=== PATIENT | female | born 1990 | race American Indian/Alaskan Native ===

== ENCOUNTER 2018-10-09 15:25 | Emergency (ER) | payer SELFPAY ==
--- NOTE | 2018-10-09 16:35 | Event Note ---
ED Screening Note Date of service: 10/09/18 Time: 16:34 ED Screening Note: 28 y o female at 8 weeks gestation presents with vaginal bleed This initial assessment/diagnostic orders/clinical plan/treatment(s) is/are subject to change based on patients health status, clinical progression and re- assessment by fellow clinical providers in the ED. Further treatment and workup at subsequent clinical providers discretion. Patient/guardian urged not to elope from the ED as their condition may be serious if not clinically assessed and managed. Initial orders include: ua,preg quant and cbc
[2018-10-09 17:28] LABS: Basophils % (Auto) 0.3 % (0.0-1.8); Eosinophils # (Auto) 0.1 K/mm3 (0.0-0.4); Hematocrit 33.5 % (30.3-42.9); Hemoglobin 11.2 gm/dl (10.1-14.3); Lymphocytes # (Auto) 3.2 K/mm3 (1.2-5.4); Lymphocytes % (Auto) 32.1 % (13.4-35.0); Mean Corpuscular HGB Conc 33 % (30-34); Monocytes # (Auto) 0.8 K/mm3 (0.0-0.8); Monocytes % (Auto) 7.8 % (0.0-7.3); Platelet Count 345 K/mm3 (140-440)
[2018-10-09 17:30] LABS: Bilirubin,Urine NEG (Negative); Blood,Urine LG (Negative); Color,Urine Yellow (Yellow); Mucus,Urine FEW /HPF; Protein,Urine <15 mg/dL mg/dL (Negative); Urobilinogen,Urine < 2.0 mg/dL (<2.0)
[2018-10-09 17:32] LABS: Mean Corpuscular Volume 62 fl (79-97); Red Cell Distribution Width 21.9 % (13.2-15.2)
[2018-10-09 17:53] LABS: BUN/Creatinine Ratio 10; Blood Urea Nitrogen 7 mg/dL (7-17); Calcium 9.6 mg/dL (8.4-10.2); Hemolysis Index 0
--- NOTE | 2018-10-09 19:39 | Emergency Department Report ---
ED HPI - General Chief complaint: Vaginal Bleeding Stated complaint: 8WKS PREG/BLEEDING Time Seen by Provider: 10/09/18 16:34 Source: patient Mode of arrival: Ambulatory Limitations: No Limitations - History of Present Illness Initial comments: This is a 28-year-old female nontoxic, well nourished in appearance, no acute signs of distress presents to the ED with c/o of vaginal bleeding and pelvic pain x1 day. Patient denies any abdominal pain. Patient denies any vaginal discharge or foul odor. Patient denies any nausea, vomiting, chest pain, shortness of breathe, fever, chills, headache, stiff neck, numbness, tingling. Patient denies any urinary symptoms. Patient denies any allergies or PMH. MD Complaint: vaginal bleeding, other (pelvic pain) -: days(s) Location: pelvis Radiation: none Severity: mild Severity scale (0 -10): 3 Quality: cramping, aching Consistency: constant Improves with: none Worsens with: none Associated symptoms: vaginal bleeding. denies: nausea/vomiting, vaginal discharge, abdominal pain, dysuria, headache, vision changes, malaise, dysparuenia, rash, seizure, shortness of breath, syncope, weakness Vaginal bleeding: light :: Yes Number of weeks : 8 Pre-harinder care: none - Related Data Previous Rx's Medication Instructions Recorded Last Taken Type Nitrofurantoin [place]/M-Cryst 100 mg PO Q12HR #14 capsule 10/09/18 Unknown Rx [Macrobid CAP] 21/Iron Fu/Folic Acid 1 each PO DAILY #30 tablet 10/09/18 Unknown Rx [ Complete Caplet] Allergies Allergy/AdvReac Type Severity Reaction Status Date / Time No Known Allergies Allergy Verified 10/09/18 15:27 ED Review of Systems ROS: Stated complaint: 8WKS PREG/BLEEDING Other details as noted in HPI Constitutional: denies: chills, fever Eyes: denies: eye pain, eye discharge, vision change ENT: denies: ear pain, throat pain Respiratory: denies: cough, shortness of breath, wheezing Cardiovascular: denies: chest pain, palpitations Endocrine: no symptoms reported Gastrointestinal: denies: abdominal pain, nausea, diarrhea Genitourinary: abnormal menses. denies: urgency, dysuria, discharge Musculoskeletal: denies: back pain, joint swelling, arthralgia Skin: denies: rash, lesions Neurological: denies: headache, weakness, paresthesias Psychiatric: denies: anxiety, depression Hematological/Lymphatic: denies: easy bleeding, easy bruising ED Past Medical Hx - Past Medical History Previous Medical History?: No - Surgical History Past Surgical History?: Yes Additional Surgical History: c section x2 - Medications Home Medications: Home Medications Medication Instructions Recorded Confirmed Last Taken Type Nitrofurantoin [place]/M-Cryst 100 mg PO Q12HR #14 capsule 10/09/18 Unknown Rx [Macrobid CAP] 21/Iron Fu/Folic Acid 1 each PO DAILY #30 tablet 10/09/18 Unknown Rx [ Complete Caplet] ED Physical Exam - General Limitations: No Limitations General appearance: alert, in no apparent distress - Head Head exam: Present: atraumatic, normocephalic - Neck Neck exam: Present: normal inspection, full ROM. Absent: tenderness, meningismus, lymphadenopathy - GI/Abdominal GI/Abdominal exam: Present: soft, normal bowel sounds. Absent: distended, tenderness, guarding, rebound, rigid, diminished bowel sounds - Extremities Exam Extremities exam: Present: normal inspection, full ROM - Back Exam Back exam: Present: normal inspection, full ROM - Neurological Exam Neurological exam: Present: alert, oriented X3, normal gait - Psychiatric Psychiatric exam: Present: normal affect, normal mood - Skin Skin exam: Present: warm, dry, intact, normal color. Absent: rash ED Course - Reevaluation(s) Reevaluation #1: 10/09/18 19:30 Patient is speaking in full sentences with no signs of distress noted. ED Medical Decision Making - Lab Data Result diagrams: 10/09/18 16:51 10/09/18 16:51 - Medical Decision Making This is a 28-year-old female presents with threatened miscarriage and UTI. Patient is stable and was examined by me. Normal abdominal exam. US OB obtained and dictated by the radiologist. Ua obtained. Quantative serum test obtained. Patient notified of the US report with no questions noted by the patient. Patient was instructed f/u with NATIONAL FACILITIES MANAGER in 3-5 days to follow up with a NATIONAL FACILITIES MANAGER or to emergency room for a reevaluation of serum quantative test with possible ultrasound. RH factor positive. Labs within normal limits. At time of discharge, the patient does not seem toxic or ill in appearance. No acute signs of distress noted. Patient agrees to discharge treatment plan of care. No further questions noted by the patient. Critical care attestation.: If time is entered above; I have spent that time in minutes in the direct care of this critically ill patient, excluding procedure time. ED Disposition Clinical Impression: Threatened miscarriage UTI (urinary tract infection) Qualifiers: Urinary tract infection type: site unspecified Hematuria presence: without hematuria Qualified Code(s): N39.0 - Urinary tract infection, site not specified Disposition: DC- TO HOME OR SELFCARE Is pt being admited?: No Does the pt Need Aspirin: No Condition: Stable Instructions: Urinary Tract Infection in Women (ED), Threatened Miscarriage (ED) Additional Instructions: Follow-up with a NATIONAL FACILITIES MANAGER doctor in 3-5 days or if symptoms worsen and continue return to emergency room as soon as possible. Prescriptions: Nitrofurantoin [place]/M-Cryst [Macrobid CAP] 100 mg PO Q12HR #14 capsule 21/Iron Fu/Folic Acid [ Complete Caplet] 1 each PO DAILY #30 tablet Referrals: PRIMARY CAREMD [Primary Care Provider] - 3-5 Days HONG TORRES MD [Staff Physician] - 3-5 Days [facility] [Provider [facility]] - 3-5 Days Forms: Work/School Release Form(ED)
--- NOTE | 2018-10-09 20:53 | Ultrasound Report ---
OB ultrasound FINDINGS: Viable intrauterine is seen with crown-rump length and sac measurements correspon ding to an MA of 6 weeks 1 day for an KERWIN of 06/03/2019. heart rate is 119 bpm. No hemorrhage is seen. Both ovaries appear normal. The uterus is enlarged measuring 14 x 7.6 x 8 cm and is heterogene ous especially in the fundus apparently due to fibroids. Signer Name: Chilango Pena MD Signed: 10/09/2018 8:49 PM Workstation Name: [id number]
[2018-10-09 21:09] VITALS: BP 129/81
== END 2018-10-09 21:12 | disposition home or self-care (01) ==
LOC: ED 15:25
DX: O20.0 Threatened abortion (principal); O23.41 Unspecified infection of urinary tract in pregnancy, first trimester; Z3A.01 Less than 8 weeks gestation of pregnancy
CPT/HCPCS: 36415; 76801; 76817; 80048; 81001; 84702; 85025; 86900; 86901; 87086

== ENCOUNTER 2018-10-11 15:44 | Emergency (ER) | payer SELFPAY ==
--- NOTE | 2018-10-11 16:27 | Event Note ---
ED Screening Note ED Screening Note: 08/21 M4 VAG BLEED IN PREG NO CARE NO RX NO PMH NO CIG/ETOH/DRUGS PSH 2 CSEC This initial assessment/diagnostic orders/clinical plan/treatment(s) is/are subject to change based on patients health status, clinical progression and re- assessment by fellow clinical providers in the ED. Further treatment and workup at subsequent clinical providers discretion. Patient/guardian urged not to elope from the ED as their condition may be serious if not clinically assessed and managed. Initial orders include: URINE/BLOOD/US
[2018-10-11 17:11] LABS: Bilirubin,Urine NEG (Negative); Blood,Urine LG (Negative); Color,Urine Red (Yellow); Mucus,Urine FEW /HPF; Sperm,Urine 1+ /HPF (NP); Urobilinogen,Urine < 2.0 mg/dL (<2.0)
[2018-10-11 17:15] LABS: RBC,Urine > 182.0 /HPF (0.0-6.0); WBC,Urine > 182.0 /HPF (0.0-6.0)
[2018-10-11 17:40] LABS: Basophils # (Auto) 0.1 K/mm3 (0.0-0.1); Basophils % (Auto) 0.9 % (0.0-1.8); Eosinophils # (Auto) 0.1 K/mm3 (0.0-0.4); Eosinophils % (Auto) 0.6 % (0.0-4.3); Hematocrit 32.6 % (30.3-42.9); Hemoglobin 10.8 gm/dl (10.1-14.3); Lymphocytes # (Auto) 3.4 K/mm3 (1.2-5.4); Lymphocytes % (Auto) 29.6 % (13.4-35.0); Mean Corpuscular HGB Conc 33 % (30-34); Monocytes # (Auto) 0.8 K/mm3 (0.0-0.8); Monocytes % (Auto) 6.8 % (0.0-7.3); Platelet Count 315 K/mm3 (140-440); Red Blood Count 5.29 M/mm3 (3.65-5.03)
[2018-10-11 18:00] LABS: Mean Corpuscular Volume 62 fl (79-97)
[2018-10-11 18:01] LABS: BUN/Creatinine Ratio 12; Blood Urea Nitrogen 7 mg/dL (7-17); Calcium 8.9 mg/dL (8.4-10.2); Hemolysis Index 143; Red Cell Distribution Width 21.7 % (13.2-15.2)
--- NOTE | 2018-10-11 18:03 | Ultrasound Report ---
ULTRASOUND OBSTETRIC INDICATION / CLINICAL INFORMATION: Vaginal bleeding. TECHNIQUE: Transabdominal and Transvaginal. COMPARISON: None available. FINDINGS: No visualized IUP. Uterus is enlarged measuring 14.8 x 7.0 x 7.3 cm containing several uterine fibroids measuring up to 2.9 cm. Endometrial stripe thickened and irregular measuring 1.2 cm ADNEXA: No significant abnormality. FREE FLUID: None. ADDITIONAL FINDINGS: None. IMPRESSION: 1. Thickened endometrial stripe may be secondary to recent miscarriage. Please confirm with follow-up ultrasound and beta hCG. 2. No visualized IUP 3. Enlarged leiomyomatous uterus Signer Name: Cristhian Hale MD Signed: 10/11/2018 5:59 PM Workstation Name: [id number]
--- NOTE | 2018-10-11 19:19 | Emergency Department Report ---
ED Female HPI - General Chief complaint: Vaginal Bleeding Stated complaint: 7WKS /LOWER ABD PAIN Time Seen by Provider: 10/11/18 16:26 Source: patient Mode of arrival: Ambulatory Limitations: No Limitations - History of Present Illness Initial comments: 28-year-old -[place] female who was recently seen here on 10/09/2018 for abdominal pain comes back and forth, pains and vaginal bleeding. Patient stated that it started today about 1 PM. Patient reports that she depressed for several weeks . Patient reports that she is 6 para 2 with 4 miscarriages. Last Mr. 08/21/2018. She has gone through one pad today. She reports her pain for 10 out of 10. Has not taken anything for pain. She was diagnosed on 10/09/2018 with a UTI but has not started her medications. Patient currently is in no OB care at this time. MD Complaint: vaginal bleeding, pelvic pain -: This morning Location: suprapubic Severity: severe Severity scale (0 -10): 10 Quality: cramping Consistency: constant Improves with: none Worsens with: none Are you Now?: Yes (7 weeks) Last Menstrual Period: 08/21/18 EDC: 05/28/19 Associated Symptoms: vaginal bleeding, abdominal pain - Related Data Sexually active: Yes : 6 Para: 2 A: 4 Previous Rx's Medication Instructions Recorded Last Taken Type Nitrofurantoin [place]/M-Cryst 100 mg PO Q12HR #14 capsule 10/09/18 Unknown Rx [Macrobid CAP] 21/Iron Fu/Folic Acid 1 each PO DAILY #30 tablet 10/09/18 Unknown Rx [ Complete Caplet] Allergies Allergy/AdvReac Type Severity Reaction Status Date / Time No Known Allergies Allergy Verified 10/11/18 15:48 ED Review of Systems ROS: Stated complaint: 7WKS /LOWER ABD PAIN Other details as noted in HPI Comment: All other systems reviewed and negative Gastrointestinal: abdominal pain Genitourinary: other (vaginal bleeding) ED Past Medical Hx - Past Medical History Previous Medical History?: No - Surgical History Additional Surgical History: c section x2 - Medications Home Medications: Home Medications Medication Instructions Recorded Confirmed Last Taken Type Nitrofurantoin [place]/M-Cryst 100 mg PO Q12HR #14 capsule 10/09/18 Unknown Rx [Macrobid CAP] 21/Iron Fu/Folic Acid 1 each PO DAILY #30 tablet 10/09/18 Unknown Rx [ Complete Caplet] ED Physical Exam - General Limitations: No Limitations General appearance: alert, in no apparent distress - Head Head exam: Present: atraumatic, normocephalic - Eye Eye exam: Present: normal appearance - ENT ENT exam: Present: mucous membranes moist - Neck Neck exam: Present: normal inspection - Respiratory Respiratory exam: Present: normal lung sounds bilaterally. Absent: respiratory distress - Cardiovascular Cardiovascular Exam: Present: regular rate, normal rhythm. Absent: systolic murmur, diastolic murmur, rubs, gallop - GI/Abdominal GI/Abdominal exam: Present: soft, normal bowel sounds - External exam: Present: normal external exam Speculum exam: Present: vaginal bleeding Bi-manual exam: Present: normal bi-manual exam - Extremities Exam Extremities exam: Present: normal inspection - Back Exam Back exam: Present: normal inspection - Neurological Exam Neurological exam: Present: alert, oriented X3 - Psychiatric Psychiatric exam: Present: normal affect, normal mood - Skin Skin exam: Present: warm, dry, intact, normal color. Absent: rash ED Medical Decision Making - Lab Data Result diagrams: 10/11/18 17:26 10/11/18 17:26 Lab Results 10/11/18 10/11/18 10/11/18 Range/Units 16:44 17:26 17:26 WBC 11.6 H (4.5-11.0) K/mm3 RBC 5.29 H (3.65-5.03) M/mm3 Hgb 10.8 (10.1-14.3) gm/dl Hct 32.6 (30.3-42.9) % MCV 62 L (79-97) fl MCH 20 L (28-32) pg MCHC 33 (30-34) % RDW 21.7 H (13.2-15.2) % Plt Count 315 (140-440) K/mm3 Lymph % (Auto) 29.6 (13.4-35.0) % [place] % (Auto) 6.8 (0.0-7.3) % Eos % (Auto) 0.6 (0.0-4.3) % Baso % (Auto) 0.9 (0.0-1.8) % Lymph # 3.4 (1.2-5.4) K/mm3 [place] # 0.8 (0.0-0.8) K/mm3 Eos # 0.1 (0.0-0.4) K/mm3 Baso # 0.1 (0.0-0.1) K/mm3 Seg Neutrophils % 62.1 (40.0-70.0) % Seg Neutrophils # 7.2 (1.8-7.7) K/mm3 Sodium 136 L (137-145) mmol/L Potassium 4.2 (3.6-5.0) mmol/L Chloride 102.5 (98-107) mmol/L Carbon Dioxide 21 L (22-30) mmol/L Anion Gap 17 mmol/L BUN 7 (7-17) mg/dL Creatinine 0.6 L (0.7-1.2) mg/dL Estimated GFR > 60 ml/min BUN/Creatinine Ratio 12 % Glucose 90 (65-100) mg/dL Calcium 8.9 (8.4-10.2) mg/dL HCG, Quant (0-4) mIU/mL Urine Color Red (Yellow) Urine Turbidity Cloudy (Clear) Urine pH 6.0 (5.0-7.0) Ur Specific [place] 1.026 (1.003-1.030) Urine Protein 100 mg/dl (Negative) mg/dL Urine Glucose (UA) Neg (Negative) mg/dL Urine Ketones Neg (Negative) mg/dL Urine Blood Lg (Negative) Urine Nitrite Neg (Negative) Urine Bilirubin Neg (Negative) Urine Urobilinogen < 2.0 (<2.0) mg/dL Ur Leukocyte Esterase Sm (Negative) Urine WBC (Auto) > 182.0 H (0.0-6.0) /HPF Urine RBC (Auto) > 182.0 (0.0-6.0) /HPF U Epithel Cells (Auto) 5.0 (0-13.0) /HPF Urine WBC Clumps 3+ /HPF Urine Mucus Few /HPF Urine Yeast (Budding) 3+ /HPF Urine Sperm 1+ (FINANCIAL ACCOUNTANT) /HPF Blood Type Ord Rhogam Gestat Weeks WEEKS 10/11/18 10/11/18 Range/Units 17:26 17:26 WBC (4.5-11.0) K/mm3 RBC (3.65-5.03) M/mm3 Hgb (10.1-14.3) gm/dl Hct (30.3-42.9) % MCV (79-97) fl MCH (28-32) pg MCHC (30-34) % RDW (13.2-15.2) % Plt Count (140-440) K/mm3 Lymph % (Auto) (13.4-35.0) % [place] % (Auto) (0.0-7.3) % Eos % (Auto) (0.0-4.3) % Baso % (Auto) (0.0-1.8) % Lymph # (1.2-5.4) K/mm3 [place] # (0.0-0.8) K/mm3 Eos # (0.0-0.4) K/mm3 Baso # (0.0-0.1) K/mm3 Seg Neutrophils % (40.0-70.0) % Seg Neutrophils # (1.8-7.7) K/mm3 Sodium (137-145) mmol/L Potassium (3.6-5.0) mmol/L Chloride (98-107) mmol/L Carbon Dioxide (22-30) mmol/L Anion Gap mmol/L BUN (7-17) mg/dL Creatinine (0.7-1.2) mg/dL Estimated GFR ml/min BUN/Creatinine Ratio % Glucose (65-100) mg/dL Calcium (8.4-10.2) mg/dL HCG, Quant 58560 H (0-4) mIU/mL Urine Color (Yellow) Urine Turbidity (Clear) Urine pH (5.0-7.0) Ur Specific [place] (1.003-1.030) Urine Protein (Negative) mg/dL Urine Glucose (UA) (Negative) mg/dL Urine Ketones (Negative) mg/dL Urine Blood (Negative) Urine Nitrite (Negative) Urine Bilirubin (Negative) Urine Urobilinogen (<2.0) mg/dL Ur Leukocyte Esterase (Negative) Urine WBC (Auto) (0.0-6.0) /HPF Urine RBC (Auto) (0.0-6.0) /HPF U Epithel Cells (Auto) (0-13.0) /HPF Urine WBC Clumps /HPF Urine Mucus /HPF Urine Yeast (Budding) /HPF Urine Sperm (FINANCIAL ACCOUNTANT) /HPF Blood Type A POSITIVE Ord Rhogam Gestat Weeks Rh pos WEEKS - Radiology Data Radiology results: report reviewed Patient: VÍCTOR CARRANZA MR#: [id number] : 1990 Acct:[id number] Age/Sex: 28 / F ADM Date: 10/11/18 Loc: ED Attending Dr: Ordering Physician: HARVEY SANTOS Date of Service: 10/11/18 Procedure(s): US OB transvaginal Accession Number(s): [id number] cc: HARVEY SANTOS ULTRASOUND OBSTETRIC INDICATION / CLINICAL INFORMATION: Vaginal bleeding. TECHNIQUE: Transabdominal and Transvaginal. COMPARISON: None available. FINDINGS: No visualized IUP. Uterus is enlarged measuring 14.8 x 7.0 x 7.3 cm containing several uterine fibroids measuring up to 2.9 cm. Endometrial stripe thickened and irregular measuring 1.2 cm ADNEXA: No significant abnormality. FREE FLUID: None. ADDITIONAL FINDINGS: None. IMPRESSION: 1. Thickened endometrial stripe may be secondary to recent miscarriage. Please confirm with follow- up ultrasound and beta hCG. 2. No visualized IUP 3. Enlarged leiomyomatous uterus Signer Name: Cristhian Hale MD Signed: 10/11/2018 5:59 PM Workstation Name: [id number] Transcribed By: TL Dictated By: Cristhian Hale MD Electronically Authenticated By: Cristhian Hale MD Signed Date/Time: 10/11/18 1759 - Medical Decision Making 28-year-old -[place] female who was recently seen here on 10/09/2018 for abdominal pain comes back and forth, pains and vaginal bleeding. Patient stated that it started today about 1 PM. Patient reports that she depressed for several weeks . Patient reports that she is 6 para 2 with 4 miscarriages. Last Mr. 08/21/2018. She has gone through one pad today. She reports her pain for 10 out of 10. Has not taken anything for pain. She was diagnosed on 10/09/2018 with a UTI but has not started her medications. Patient currently is in no OB care at this time. Spoke with she recommends that patient has a follow-up with an OB provider in one week. Patient can take Tylenol as needed for pain management. No sexual activities until she is evaluated by OB. Critical care attestation.: If time is entered above; I have spent that time in minutes in the direct care of this critically ill patient, excluding procedure time. ED Disposition Clinical Impression: UTI (urinary tract infection), Miscarriage Disposition: TO HOME OR SELFCARE Is pt being admited?: No Does the pt Need Aspirin: No Condition: Stable Instructions: Spontaneous Miscarriage (ED) Additional Instructions: Please take your antibiotics for urinary tract infection. He can take Tylenol as needed for pain management. It's very important for you to follow up with TATTOO DESIGNER within 1 week. Please refrain from intercourse until evaluated by OB. Referrals: PRIMARY CAREMD [Primary Care Provider] - 3-5 Days OUMOU RODARTE MD [Staff Physician] - 3-5 Days [facility] [Provider Group] - 3-5 Days Forms: Work/School Release Form(ED)
== END 2018-10-11 20:00 | disposition home or self-care (01) ==
LOC: ED 15:44
DX: O20.0 Threatened abortion (principal); O23.41 Unspecified infection of urinary tract in pregnancy, first trimester; Z3A.01 Less than 8 weeks gestation of pregnancy
CPT/HCPCS: 36415; 76801; 76817; 80048; 81001; 84702; 85025; 86900; 86901

== ENCOUNTER 2019-04-17 19:54 | Emergency (ER) | payer OTHER, MEDICAID ==
[2019-04-17 21:14] VITALS: BP 144/66
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
[2019-04-17] MEDS ORDERED: traMADol 50 MG TAB PO ONE (23:34)
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
== END 2019-04-18 00:30 | disposition home or self-care (01) ==
LOC: ED 19:54
DX: S86.811A Strain of other muscle(s) and tendon(s) at lower leg level, right leg, initial encounter (principal); S16.1XXA Strain of muscle, fascia and tendon at neck level, initial encounter; S39.012A Strain of muscle, fascia and tendon of lower back, initial encounter; V89.2XXA Person injured in unspecified motor-vehicle accident, traffic, initial encounter; Y93.89 Activity, other specified; Y92.488 Other paved roadways as the place of occurrence of the external cause; Y99.8 Other external cause status
CPT/HCPCS: 72040; 72100

== ENCOUNTER 2019-05-06 03:31 | Emergency (ER) | payer MEDICAID, OTHER ==
[2019-05-06 03:39] VITALS: BP 152/51
[2019-05-06] MEDS ORDERED: IBUPROFEN 600 MG TAB PO ONE (04:32)
--- NOTE | 2019-05-06 04:37 | Emergency Department Report ---
ED General Adult HPI - General Chief complaint: Headache Stated complaint: FREQUENT URINATION/COUGHING/HEADACHE Time Seen by Provider: 05/06/19 04:23 Source: patient Mode of arrival: Ambulatory Limitations: No Limitations - History of Present Illness Initial comments: 28-year-old -British female presents to the emergency room complaining of a headache for couple of weeks she denies any change of vision no photophobia no head injury. Complains of cough since Sunday and urinary frequency since yesterday. Patient reports she has been taking NyQuil. Patient has taken nothing for her headache. Patient denies any nausea vomiting abdominal pain. Patient admits to urinary frequency and urgency. Patient does have a primary care doctor and did not follow-up. Patient has no known drug allergies currently takes no meds on a daily basis and has no past medical history. Location: head Severity scale (0 -10): 7 Consistency: constant Improves with: none Worsens with: none Treatments Prior to Arrival: none - Related Data Previous Rx's Medication Instructions Recorded Last Taken Type Nitrofurantoin [place]/M-Cryst 100 mg PO Q12HR #14 capsule 10/09/18 Unknown Rx [Macrobid CAP] 21/Iron Fu/Folic Acid 1 each PO DAILY #30 tablet 10/09/18 Unknown Rx [ Complete Caplet] Menthol/Camphor [[place] 1 applicatio TP QID PRN #1 tube 04/18/19 Unknown Rx Ointment] Naproxen 500 mg PO BID PRN #30 tablet 04/18/19 Unknown Rx Allergies Allergy/AdvReac Type Severity Reaction Status Date / Time No Known Allergies Allergy Verified 10/11/18 15:48 ED Review of Systems ROS: Stated complaint: FREQUENT URINATION/COUGHING/HEADACHE Other details as noted in HPI Comment: All other systems reviewed and negative ED Past Medical Hx - Past Medical History Previous Medical History?: No - Surgical History Additional Surgical History: c section x2 - Social History Smoking Status: Never Smoker Substance Use Type: None - Medications Home Medications: Home Medications Medication Instructions Recorded Confirmed Last Taken Type Nitrofurantoin [place]/M-Cryst 100 mg PO Q12HR #14 capsule 10/09/18 Unknown Rx [Macrobid CAP] 21/Iron Fu/Folic Acid 1 each PO DAILY #30 tablet 10/09/18 Unknown Rx [ Complete Caplet] Menthol/Camphor [[place] 1 applicatio TP QID PRN #1 tube 04/18/19 Unknown Rx Ointment] Naproxen 500 mg PO BID PRN #30 tablet 04/18/19 Unknown Rx ED Physical Exam - General Limitations: No Limitations General appearance: alert, in no apparent distress - Head Head exam: Present: atraumatic, normocephalic - Eye Eye exam: Present: normal appearance - ENT ENT exam: Present: mucous membranes moist - Neck Neck exam: Present: normal inspection - Respiratory Respiratory exam: Present: normal lung sounds bilaterally. Absent: respiratory distress - Cardiovascular Cardiovascular Exam: Present: regular rate, normal rhythm. Absent: systolic murmur, diastolic murmur, rubs, gallop - GI/Abdominal GI/Abdominal exam: Present: soft, normal bowel sounds. Absent: distended, tenderness, guarding - Neurological Exam Neurological exam: Present: alert, oriented X3 - Expanded Neurological Exam Expanded Cranial nerves: EOM's Intact: Normal, Gag Reflex: Normal, Tongue Deviation: Normal, Nystagmus: Normal, Facial Sensation: Normal, Facial Palsy with Forehead Movement: Normal, Facial Palsy without Forehead Movement: Normal Cerebellar function: Finger to Nose: Normal, Romberg: Normal Upper motor neuron: Bruce Neglect: Normal, Pronator Drift: Normal, Babinski Sign: Normal, Sensory Extinction: Normal Sensory exam: Upper Extremity Light Touch: Normal, Upper Extremity Pin Prick: Normal, Upper Extremity Temperature: Normal, UE 2 Point Discrimination: Normal, Lower Extremity Light Touch: Normal, Lower Extremity Pin Prick: Normal, Lower Extremity Temperature: Normal, LE 2 Point Discrimination: Normal Motor strength exam: RUE: 4, LUE: 4, RLE: 4, LLE: 4 Best Eye Response ([place]): (4) open spontaneously Best Motor Response ([place]): (6) obeys commands Best Verbal Response ([place]): (5) oriented [place] Total: 15 ED Course Vital Signs 05/06/19 05/06/19 03:35 04:36 Temperature 98.6 F Pulse Rate 80 Respiratory 18 16 Rate Blood Pressure 152/51 O2 Sat by Pulse 100 Oximetry - Reevaluation(s) Reevaluation #1: 05/06/19 05:12 Patient reports her headache is improving since having ibuprofen ED Medical Decision Making - Lab Data Laboratory Results - last 72 hr 05/06/19 04:14 Urine Color Straw Urine Turbidity Clear Urine pH 6.0 Ur Specific [place] 1.019 Urine Protein <15 mg/dl Urine Glucose (UA) Neg Urine Ketones Neg Urine Blood Neg Urine Nitrite Neg Urine Bilirubin Neg Urine Urobilinogen < 2.0 Ur Leukocyte Esterase Neg Urine WBC (Auto) 4.0 Urine RBC (Auto) 3.0 U Epithel Cells (Auto) 5.0 Urine Mucus Few - Medical Decision Making 28-year-old -British female presents to the emergency room complaining of a headache for couple of weeks she denies any change of vision no photophobia no head injury. Complains of cough since Sunday and urinary frequency since yesterday. Patient reports she has been taking NyQuil. Patient has taken nothing for her headache. Patient denies any nausea vomiting abdominal pain. Patient admits to urinary frequency and urgency. Patient does have a primary care doctor and did not follow-up. Patient has no known drug allergies currently takes no meds on a daily basis and has no past medical history. UA has been sent. Ibuprofen 600 mg for pain control. Urinalysis is negative for any acute findings. Ibuprofen has helped with patient's headache. Patient can take ibuprofen at home [id number] Claritin or Zyrtec's or Robitussin. Critical care attestation.: If time is entered above; I have spent that time in minutes in the direct care of this critically ill patient, excluding procedure time. ED Disposition Clinical Impression: Urinary frequency, Headache, Cough Disposition: DC-01 TO HOME OR SELFCARE Is pt being admited?: No Does the pt Need Aspirin: No Condition: Stable Instructions: Acute Headache (ED), Antihistamine/Antitussive (By mouth) Additional Instructions: Urinalysis is negative for any acute findings. Continue taking ibuprofen as needed for headache. Take [id number] Zyrtec's or Claritin as well as Robitussin-DM for cough. Follow-up with your primary care provider if your symptoms persist or gets worse Referrals: PRIMARY CARE, [Primary Care Provider] - 3-5 Days Forms: Work/School Release Form(ED)
[2019-05-06 04:41] LABS: Bilirubin,Urine NEG (Negative); Blood,Urine NEG (Negative); Color,Urine Straw (Yellow); Mucus,Urine FEW /HPF; Protein,Urine <15 mg/dL mg/dL (Negative); Urobilinogen,Urine < 2.0 mg/dL (<2.0)
== END 2019-05-06 05:23 | disposition home or self-care (01) ==
LOC: ED 03:31
DX: R35.0 Frequency of micturition (principal); R51 Headache; R05 Cough
CPT/HCPCS: 81001; 99283

== ENCOUNTER 2019-05-13 11:21 | Emergency (ER) | payer MEDICAID ==
--- NOTE | 2019-05-13 11:38 | Event Note ---
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 Further treatment and workup at subsequent clinical providers discretion. Patient/guardian urged not to elope from the ED as their condition may be serious if not clinically assessed and managed. Initial orders include: MARICARMEN ENG
[2019-05-13 12:39] LABS: Hematocrit 31.1 % (30.3-42.9); Hemoglobin 10.2 gm/dl (10.1-14.3); Mean Corpuscular Volume 60 fl (79-97); Red Blood Count 5.21 M/mm3 (3.65-5.03)
[2019-05-13 12:40] LABS: Basophils % (Auto) 0.3 % (0.0-1.8); Eosinophils % (Auto) 0.1 % (0.0-4.3); Lymphocytes # (Auto) 1.9 K/mm3 (1.2-5.4); Lymphocytes % (Auto) 26.8 % (13.4-35.0); Mean Corpuscular HGB Conc 33 % (30-34); Monocytes # (Auto) 0.6 K/mm3 (0.0-0.8); Monocytes % (Auto) 8.1 % (0.0-7.3); Platelet Count 249 K/mm3 (140-440)
--- NOTE | 2019-05-13 13:19 | XRay Report ---
CHEST 2 VIEWS INDICATION / CLINICAL INFORMATION: Shortness of breath. COMPARISON: None available. FINDINGS: SUPPORT DEVICES: None. HEART / MEDIASTINUM: No significant abnormality. LUNGS / PLEURA: No significant pulmonary or pleural abnormality. No pneumothorax. ADDITIONAL FINDINGS: No significant additional findings. IMPRESSION: 1. No acute findings. Signer Name: Keyshawn Gonzalez MD Signed: 05/13/2019 1:15 PM Workstation Name: [id number]
[2019-05-13 13:42] LABS: Alanine Aminotransferase 12 units/L (7-56); BUN/Creatinine Ratio 11; Blood Urea Nitrogen 8 mg/dL (7-17); Calcium 8.9 mg/dL (8.4-10.2); Hemolysis Index 2
[2019-05-13] MEDS ORDERED: ACETAMINOPEN W/CODEINE 120-12MG ORAL LIQD 5 ML PO ONE (13:54)
[2019-05-13] MEDS ORDERED: predniSONE 20 MG TAB PO ONE (13:54)
--- NOTE | 2019-05-13 13:55 | Emergency Department Report ---
Minor Respiratory - HPI Chief Complaint: Extremity Injury, Upper Stated Complaint: SOB/BLURRY VISION Time Seen by Provider: 05/13/19 11:35 Duration: 3 Days Pain Location: Chest Severity: mild Minor Respiratory: Yes Able to Tolerate Fluids, Yes Cough, Yes Sick Contacts (C OVID positive person), Yes Shortness of Breath, Yes Fever (low grade), No Rhinorrhea, No Sore Throat, No Ear Pain, No Hemoptysis, No Chest Pain Other History: This is a 28-year-old female with no prior medical conditions who presents the ED complaining of fever shortness of breath for the past 3 days. Patient states that shortness of breath is worse with walking short distances. Patient states she has had a fever yesterday. Patient states that she had a positive exposure within the past 10 days. Patient states that she got her hair done by her hairdresser who is as of 4 days ago and is in the ICU in [place] with COVID positive. ED Review of Systems ROS: Stated complaint: SOB/BLURRY VISION Other details as noted in HPI Comment: All other systems reviewed and negative ED Past Medical Hx - Past Medical History Previous Medical History?: No - Surgical History Past Surgical History?: Yes Additional Surgical History: c section x2 - Social History Smoking Status: Never Smoker Substance Use Type: None - Medications Home Medications: Home Medications Medication Instructions Recorded Confirmed Last Taken Type Nitrofurantoin [place]/M-Cryst 100 mg PO Q12HR #14 capsule 10/09/18 Unknown Rx [Macrobid CAP] 21/Iron Fu/Folic Acid 1 each PO DAILY #30 tablet 10/09/18 Unknown Rx [ Complete Caplet] Menthol/Camphor [[place] 1 applicatio TP QID PRN #1 tube 04/18/19 Unknown Rx Ointment] Naproxen 500 mg PO BID PRN #30 tablet 04/18/19 Unknown Rx Albuterol INH(or & Nicu Only) 2 puff IH QID PRN #8.5 gram 05/13/19 Unknown Rx [ProAir HFA Inhaler] Benzonatate [Tessalon Perles] 100 mg PO Q8HR #20 capsule 05/13/19 Unknown Rx Hydroxychloroquine [Plaquenil] 200 mg PO QDAY #7 tablet 05/13/19 Unknown Rx Minor Respiratory Exam - Exam General: Vital signs noted. No distress. Alert and acting appropriately. HEENT: Yes Moist Mucous Membranes, No Pharyngeal Erythema, No Pharyngeal Exudates, No Rhinorrhea, No Conjuctival Injection, No Frontal Tenderness, No Maxillary Tenderness Ear: Neither TM Bulge, Neither TM Erythema, Neither EAC Pain, Neither EAC Discharge Neck: Yes Supple, No Adenopathy Lungs: Yes Good Air Exchange, No Wheezes, No Ronchi, No Stridor, No Cough, No Labored Respirations, No Retractions, No Use of Accessory Muscles, No Other Abnormal Lung Sounds Heart: Yes Regular, No Murmur Abdomen: Yes Normal Bowel Sounds, No Tenderness, No Peritoneal Signs Skin: No Rash, No Edema Neurologic: Alert and oriented, no deficits. Musculoskeletal: Unremarkable. ED Course Vital Signs 05/13/19 11:32 Temperature 99.8 F H Pulse Rate 90 Respiratory 20 Rate Blood Pressure 138/83 O2 Sat by Pulse 100 Oximetry ED Medical Decision Making - Lab Data Result diagrams: 05/13/19 11:45 05/13/19 11:45 - Radiology Data Radiology results: report reviewed, image reviewed CHEST 2 VIEWS INDICATION / CLINICAL INFORMATION: Shortness of breath. COMPARISON: None available. FINDINGS: SUPPORT DEVICES: None. HEART / MEDIASTINUM: No significant abnormality. LUNGS / PLEURA: No significant pulmonary or pleural abnormality. No p neumothorax. ADDITIONAL FINDINGS: No significant additional findings. IMPRESSION: 1. No acute findings. Signer Name: Keyshawn Gonzalez MD Signed: 05/13/2019 1:15 PM Workstation Name: [id number] Transcribed By: JOSIANE Dictated By: Keyshawn Gonzalez MD Electronically Authenticated By: Keyshawn Gonzalez MD Signed Date/Time: 05/13/19 1315 - Medical Decision Making This 28-year-old female presenting with upper respiratory symptoms stating she had been exposed to somebody who is cold with positive. Patient had a low-grade fever in the ED. Tylenol was given in ED. Chest x-ray shows no acute finding CT see health department call with person under investigation forms filled out. Discussed with patient. Discussed with patient that she will be tested in her home but this is it. Vital signs are normal. Patient is in no acute distress or respiratory distress Patient is satting well at 100% oxygen normal air. Discussed follow-up with primary care physician in 2 to 3 days. Critical care attestation.: If time is entered above; I have spent that time in minutes in the direct care of this critically ill patient, excluding procedure time. ED Disposition Clinical Impression: Upper respiratory infection, Exposure to COVID-19 virus Disposition: TO HOME OR SELFCARE Is pt being admited?: No Does the pt Need Aspirin: No Condition: Stable Instructions: Upper Respiratory Infection (ED), Viral Syndrome (ED) Additional Instructions: Make sure to follow up with the primary care physician as discussed. Take all your medications as you've been prescribed. If you have any worsening symptoms or develop new symptoms please return to ED immediately. Prescriptions: Hydroxychloroquine [Plaquenil] 200 mg PO QDAY #7 tablet Albuterol INH(or & Nicu Only) [ProAir HFA Inhaler] 2 puff IH QID PRN #8.5 gram PRN Reason: Shortness Of Breath Benzonatate [Tessalon Perles] 100 mg PO Q8HR #20 capsule Referrals: MELINDA OLIVIA [Other] - 3-5 Days [facility] [Outside] - 3-5 Days [facility] [Outside] - 3-5 Days Forms: Accompanied Note, Work/School Release Form(ED) Time of Disposition: 15:55
[2019-05-13 16:11] VITALS: BP 140/80
== END 2019-05-13 16:11 | disposition home or self-care (01) ==
LOC: ED 11:21
DX: J06.9 Acute upper respiratory infection, unspecified (principal); Z20.818 Contact with and (suspected) exposure to other bacterial communicable diseases
CPT/HCPCS: 36415; 71046; 80053; 84703; 85025; 86140; 87400; 99284; J7512